=== PATIENT | male | born 1990 | race Caucasian/White ===

== ENCOUNTER 2018-10-07 00:57 | Emergency (ER) | payer OTHER ==
[~2018-10-07] VITALS: Ht 180.3 cm; Wt 68.0 kg
[2018-10-07 01:07] VITALS: BP 106/56; Ht 180.3 cm; Wt 68.0 kg
== END 2018-10-07 02:50 | disposition home or self-care (01) ==
LOC: ED 00:57
DX: F32.9 Major depressive disorder, single episode, unspecified (principal); F41.9 Anxiety disorder, unspecified; Z76.0 Encounter for issue of repeat prescription